=== PATIENT | female | born 1955 | race Caucasian/White ===

== ENCOUNTER 2021-07-03 13:31 | Outpatient (CLI) | payer BC | END 2021-07-03 13:32 | disposition home or self-care (01) | LOC: CSHMAMMO 13:31 | PROVIDERS: ATTEND Internal Medicine | DX: Z12.31 Encounter for screening mammogram for malignant neoplasm of breast (principal); Z12.2 Encounter for screening for malignant neoplasm of respiratory organs; F17.210 Nicotine dependence, cigarettes, uncomplicated; Z98.82 Breast implant status | CPT/HCPCS: 71271; 77063; 77067 ==

== ENCOUNTER → 2023-09-24 | Day surgery (SDC) | payer BC, MEDICARE | LOC: CSHRAD 16:28 | PROVIDERS: ATTEND Internal Medicine | DX: M25.572 Pain in left ankle and joints of left foot (principal) ==

== ENCOUNTER 2023-11-12 14:23 | Outpatient (CLI) | payer BC, MEDICARE | END 2023-11-12 14:24 | disposition home or self-care (01) | LOC: CSHULT 14:23 | PROVIDERS: ATTEND Internal Medicine | DX: N18.31 Chronic kidney disease, stage 3a (principal); N28.1 Cyst of kidney, acquired; N28.9 Disorder of kidney and ureter, unspecified | CPT/HCPCS: 76770 ==

== ENCOUNTER 2023-12-24 07:27 | Day surgery (SDC) | payer BC, MEDICARE ==
[2023-12-24 08:19] LABS: #Basophils 0.05 10x3/uL (0.0-0.2); #Eosinphils 0.21 10x3/uL (0.0-0.5); #Monocytes 0.48 10x3/uL (0.0-1.1); #Neutrophils 3.62 10x3/uL (1.5-8.4); %Basophils 0.8 % (0.0-2.0); %Eosinophils 3.4 % (0.0-6.0); %Lymphocytes 28.9 % (18.0-47.0); %Monocytes 7.8 % (0.0-10.0); %Neutrophils 58.8 % (40.0-75.0); Hematocrit 41.9 % (34.9-44.5); Hemoglobin 13.9 g/dL (12.0-15.5); Mean Corpuscular HGB CONC 33.2 g/dL (32.0-36.0); Mean Corpuscular Hemoglobin 30.4 pg (27.0-33.0); Mean Corpuscular Volume 91.7 fL (81.6-98.3); Mean Platelet Volume 9.9 fL (7.4-10.4); Platelet Count 209 10x3/uL (150-450); RBC Distribution Width 14.3 % (11.5-14.5); Red Blood Cell (RBC) Count 4.57 10x6/uL (3.90-5.03); White Blood Cell (WBC) Count 6.2 10x3/uL (3.5-10.5)
[2023-12-24 08:30] LABS: Anion Gap 16 mmol/L (10-20); BUN (Urea Nitrogen) 23 mg/dL (9.8-20.1); Calc. Creatinine Clearance 0 mL/min (70-130); Calcium 9.9 mg/dL (7.8-10.44); Carbon Dioxide 23 mmol/L (23-31); Chloride 105 mmol/L (98-107); Estimated GFR 44; Glucose 141 mg/dL (80-115); INR-International Normal Ratio 0.9; PTT 25.4 sec (22.0-33.0); Potassium 3.7 mmol/L (3.5-5.1); Prothrombin Time 10.2 sec (9.5-12.1); Sodium 140 mmol/L (136-145)
[2023-12-24 09:04] VITALS: BP 111/61; TEMP 97.8
[2023-12-24] MEDS ORDERED: Acetylcysteine 800 MG/4 ML VIAL ONE ×2 (09:18→09:19)
[2023-12-24] MEDS ORDERED: Heparin 10,000 UNITS/ 10 ML VIAL ONE ×2 (09:40→11:02)
[2023-12-24] MEDS ORDERED: Lidocaine 1% (PF) 30 ML VIAL ONE (09:40)
[2023-12-24] MEDS ORDERED: fentaNYL 50 mcg/mL 1 mL Vial ONE ×2 (09:40→11:05)
[2023-12-24] MEDS ORDERED: Midazolam HCl 2 mg/2 ml Vial ONE ×2 (09:40→11:12)
[2023-12-24] MEDS ORDERED: Verapamil 5 MG/2 ML VIAL ONE (10:05)
[2023-12-24] MEDS ORDERED: Nitroglycerin 50 MG/250 ML BOT 250 ML ONE (10:05)
== END 2023-12-24 15:39 | disposition home or self-care (01) ==
LOC: CSHSDC 07:27
PROVIDERS: ATTEND Specialist
PROC: 02703ZZ Dilation of Coronary Artery, One Artery, Percutaneous Approach (ICD-10-PCS; principal; 2023-12-24)
DX: I71.40 Abdominal aortic aneurysm, without rupture, unspecified (principal); I70.1 Atherosclerosis of renal artery
CPT/HCPCS: 36251; 71045; 75625; 80048; 85025; 85347; 85610; 85730; 93005; 93010; 99152; 99153; C1769; C1887; C1894; J1644; J2001; J2250; J3010; Q9967

== ENCOUNTER 2024-01-11 13:58 | Outpatient (CLI) | payer BC, MEDICARE ==
[2024-01-11 15:25] LABS: INR-International Normal Ratio 0.9; PTT 27.6 sec (22.0-33.0); Prothrombin Time 10.2 sec (9.5-12.1)
[2024-01-11 15:29] LABS: Hematocrit 40.3 % (34.9-44.5); Hemoglobin 13.6 g/dL (12.0-15.5); Mean Corpuscular HGB CONC 33.7 g/dL (32.0-36.0); Mean Corpuscular Hemoglobin 30.6 pg (27.0-33.0); Mean Corpuscular Volume 90.6 fL (81.6-98.3); Mean Platelet Volume 10.3 fL (7.4-10.4); Platelet Count 255 10x3/uL (150-450); RBC Distribution Width 14.3 % (11.5-14.5); Red Blood Cell (RBC) Count 4.45 10x6/uL (3.90-5.03); White Blood Cell (WBC) Count 7.2 10x3/uL (3.5-10.5)
[2024-01-11 15:39] LABS: Anion Gap 13 mmol/L (10-20); BUN (Urea Nitrogen) 21 mg/dL (9.8-20.1); Calc. Creatinine Clearance 0 mL/min (70-130); Calcium 9.9 mg/dL (7.8-10.44); Carbon Dioxide 29 mmol/L (23-31); Chloride 102 mmol/L (98-107); Estimated GFR 43; Glucose 107 mg/dL (80-115); Potassium 3.4 mmol/L (3.5-5.1); Sodium 141 mmol/L (136-145)
== END 2024-01-11 13:59 | disposition home or self-care (01) ==
LOC: CSHLAB 13:58
PROVIDERS: ATTEND Specialist
DX: Z01.812 Encounter for preprocedural laboratory examination (principal); I71.40 Abdominal aortic aneurysm, without rupture, unspecified; I70.1 Atherosclerosis of renal artery
CPT/HCPCS: 80048; 85027; 85610; 85730